=== PATIENT | female | born 1945 | race Caucasian/White ===

== ENCOUNTER 2017-08-18 15:33 | Inpatient (IN) | payer MEDICARE ==
[~2017-08-18 15:33] MED LIST: ISOVUE-370 76%-LOCM 1 ML ONE
--- NOTE | 2017-08-18 16:03 | RAD ---
PORTABLE CHEST ONE VIEW: Date: 08-18-17 Time: 3:02 p.m. History: Fever, nausea. FINDINGS: Heart is enlarged. The aorta is tortuous. No lobar consolidation, pneumothoraces, arsen pleural edema or large effusions are seen. IMPRESSION: Cardiomegaly. POS: LEFTY
[2017-08-18 16:06] LABS: Hemoglobin 13.3 g/dL (12.0-16.0); Mean Corpuscular HGB CONC 33.1 g/dL (32.0-36.0); Mean Corpuscular Hemoglobin 30.8 pg (27.0-31.0); Mean Corpuscular Volume 93.1 fL (78.0-98.0); Mean Platelet Volume 7.6 fL (7.4-10.4); Platelet Count 245 thou/uL (130-400); RBC Distribution Width 14.4 % (11.5-14.5); Red Blood Cell (RBC) Count 4.32 mill/uL (4.20-5.40); White Blood Cell (WBC) Count 14.8 thou/uL (4.8-10.8)
[2017-08-18 16:22] LABS: ALT (SGPT) 27 U/L (8-55); AST (SGOT) 28 U/L (5-34); Albumin 4.2 g/dL (3.4-4.8); Alkaline Phosphatase 73 U/L (40-150); Anion Gap 15 mmol/L (10-20); BUN (Urea Nitrogen) 11 mg/dL (9.8-20.1); CK (CPK) 94 U/L (29-168); Calc. Creatinine Clearance 0 mL/min (70-130); Calcium 9.6 mg/dL (7.8-10.44); Carbon Dioxide 22 mmol/L (23-31); Chloride 98 mmol/L (98-107); Estimated GFR-MDRD 60; Globulin 3.5 g/dL (2.4-3.5); Glucose 121 mg/dL (83-110); Protein, Total 7.7 g/dL (6.0-8.3); Sodium 131 mmol/L (136-145)
[2017-08-18 16:23] LABS: Band 5 % (5-11); Lymphocytes 4 % (21-51); MDiff Complete? YES; Monocytes 3 % (0-10); Neutrophil 87 % (42-75); PLT Morphology Comment Appears Adequate; RBC Morphology Normal; Reactive Lymphocytes 1 % (0-10); Vacuoles SLIGHT
[2017-08-18 17:30] LABS: CKMB 1.4 ng/mL (0-6.6)
[2017-08-18] MEDS ORDERED: Piperacillin/Tazobactam 3.375 GM VIAL ONE (17:59)
[2017-08-18] MEDS ORDERED: Aspirin 325 MG TAB ONE (17:59)
[2017-08-18 18:07] LABS: Bilirubin Negative (Negative); Blood, Urine Small (Negative); Clarity CLEAR (Clear); Glucose, Urine (Dipstick) Negative (Negative); Leukocyte Trace (Negative); Nitrite Negative (Negative); Protein, Urine (Dipstick) Trace mg/dL (Neg-Trace); Specific Gravity, Urine 1.008 (1.002-1.036); Urobilinogen 0.2 mg/dL (0.2-1.0)
[2017-08-18 18:08] LABS: Bacteria/HPF None Seen HPF (None Seen); Hyaline Casts/LPF 0-3 HYALINE CAST LPF (0-3 Hyaline); Pathc Cast-AUWi Flag 0.58 (0-2.49); Squamous Epithelial 0-3 HPF (0-3); WBC/HPF 0-3 HPF (0-3)
--- NOTE | 2017-08-18 18:34 | PDOC.FPRHP ---
- History of Present Illness Chief Complaint: Fever History of Present Illness: 72yo healthy female with pmh of HLD, psoriatic arthritis and polio as a child with fever, nausea and vomiting of 1 day duration. She reports feeling fine Wednesday 08/16 but yesterday afternoon started to feel bad and developed a nonproductive cough. Later she began running a fever of up to 104. She started having nausea and a couple episodes of bilious vomiting today. Endorses headache that resolved with administration of IV fluids. Reports no PO intake over last 24hrs except small sips. Denies sick contacts, eating strange or new foods. [place] but denies any bug bites or ticks. ED Course: Vanc, Zosyn and 2L of IV fluids were administered. CXR was unremarkable and EKG showed sinus tachycardia, complete LBBB, left axis deviation, and left atrial enlargement. Group A strep and blood cx's were obtained - Allergies/Adverse Reactions Allergies Allergy/AdvReac Type Severity Reaction Status Date / Time codeine Allergy Intermediate Anxiety Verified 08/18/17 19:34 - Home Medications Medication Instructions Recorded Confirmed Type Aspirin [Ecotrin Low Strength] 325 mg PO HS 08/18/17 08/18/17 History Atorvastatin Calcium [Lipitor] 10 mg PO HS 08/18/17 08/18/17 History Cholecalciferol (Vitamin D3) 1,000 unit PO HS 08/18/17 08/18/17 History [Vitamin D3] Folic Acid 1 mg PO HS 08/18/17 08/18/17 History Leucovorin Calcium 5 mg PO HS 08/18/17 08/18/17 History Methotrexate Sodium/PF 25 mg IN Q7DAYS 08/18/17 08/18/17 History [Methotrexate 25 mg/ml Vial] Pantoprazole [Protonix] 40 mg PO QAM 08/18/17 08/18/17 History - History PMHx: Spondylolisthesis, arthritis, Left eye blood clot, hx of polio as child, HLD, psoriatic arthritis PSHx: Left foot surgery, cholecystectomy, hysterectomy FHx: None Social: Denies tobacco, alcohol or drug use. Lives in [place] at home alone. Retired - Review of Systems General: reports: fever/chills, weight/appetite/sleep changes (anorexia and sips only) Eyes: denies: vision changes ENT: denies: nasal congestion Respiratory: reports: cough (nonproductive) Cardiovascular: denies: chest pain, edema, orthopnea Gastrointestinal: reports: nausea, vomiting (bilious). denies: diarrhea, constipation, abdominal pain Genitourinary: denies: incontinence Skin: denies: rashes, lesions Musculoskeletal: reports: arthritis/arthralgias Neurological: reports: numbness, weakness (Piolo related Left leg weakness Right food numbness due to spondylolisthesis), other (Headache) - Vital signs BP: 133/81 HR: 125 RR: 22 Tmax: 102.6 Pox: 96% on 2L - Physical Exam Constitutional: NAD, awake, alert and oriented, well developed HEENT: normocephalic and atraumatic, PERRLA, EOMI, oropharynx clear, good dention, other (dry mucous membranes) Neck: supple, trachea midline, no LAD, no thyromegaly Chest: no-tender to palpation Heart: RRR Lungs: CTAB, no respiratory distress, good air movement, no wheezing Abdomen: soft, non-tender, bowel sounds present Musculoskeletal: other (Left leg atrophy related to polio) Neurological: other (right foot numbness related to spondylolisthesis) Skin: no rash/lesions, capillary refill <2 seconds Psychiatric: normal mood and affect, good judgment and insight FMR H&P: Results - Labs Result Diagrams: 08/18/17 15:46 08/18/17 15:46 Lab results: WBC 14.8 thou/uL (4.8-10.8) H 08/18/17 15:46 Hgb 13.3 g/dL (12.0-16.0) 08/18/17 15:46 Hct 40.2 % (36.0-47.0) 08/18/17 15:46 MCV 93.1 fL (78.0-98.0) 08/18/17 15:46 Plt Count 245 thou/uL (130-400) 08/18/17 15:46 Band Neuts % (Manual) 5 % (5-11) 08/18/17 15:46 Sodium 131 mmol/L (136-145) L 08/18/17 15:46 Potassium 4.0 mmol/L (3.5-5.1) 08/18/17 15:46 Chloride 98 mmol/L (98-107) 08/18/17 15:46 Carbon Dioxide 22 mmol/L (23-31) L 08/18/17 15:46 BUN 11 mg/dL (9.8-20.1) 08/18/17 15:46 Creatinine 0.92 mg/dL (0.6-1.1) 08/18/17 15:46 Glucose 121 mg/dL (83-110) H 08/18/17 15:46 Lactic Acid 0.9 mmol/L (0.5-2.2) 08/18/17 15:46 Calcium 9.6 mg/dL (7.8-10.44) 08/18/17 15:46 Total Bilirubin 1.0 mg/dL (0.2-1.2) 08/18/17 15:46 AST 28 U/L (5-34) 08/18/17 15:46 ALT 27 U/L (8-55) 08/18/17 15:46 Alkaline Phosphatase 73 U/L (40-150) 08/18/17 15:46 Creatine Kinase 94 U/L (29-168) 08/18/17 15:46 CK-MB (CK-2) 1.4 ng/mL (0-6.6) 08/18/17 15:49 Serum Total Protein 7.7 g/dL (6.0-8.3) 08/18/17 15:46 Albumin 4.2 g/dL (3.4-4.8) 08/18/17 15:46 Urine Ketones 15 mg/dL (Negative) H 08/18/17 18:00 Urine Blood Small (Negative) H 08/18/17 18:00 Urine Nitrite Negative (Negative) 08/18/17 18:00 Ur Leukocyte Esterase Trace (Negative) H 08/18/17 18:00 Urine RBC 4-6 HPF (0-3) 08/18/17 18:00 Urine WBC 0-3 HPF (0-3) 08/18/17 18:00 Ur Squamous Epith Cells 0-3 HPF (0-3) 08/18/17 18:00 Urine Bacteria None Seen HPF (None Seen) 08/18/17 18:00 - EKG Interpretation EKG: Sinus tach 122. Complete LBBB, left axis deviation, Left atrial enlargement - Radiology Interpretation Chest x-ray Status: report reviewed by me Additional comment: Cardiomegaly FMR H&P: A/P - Problem List (1) Spondylisthesis Current Visit: Yes Status: Acute Code(s): M43.10 - SPONDYLOLISTHESIS, SITE UNSPECIFIED (2) Polio Current Visit: No Status: Acute Code(s): A80.9 - ACUTE POLIOMYELITIS, UNSPECIFIED Comment: As child (3) HLD (hyperlipidemia) Current Visit: Yes Status: Acute Code(s): E78.5 - HYPERLIPIDEMIA, UNSPECIFIED (4) Nausea & vomiting Current Visit: Yes Status: Acute Code(s): R11.2 - NAUSEA WITH VOMITING, UNSPECIFIED (5) Tachycardia Current Visit: Yes Status: Acute Code(s): R00.0 - TACHYCARDIA, UNSPECIFIED (6) Psoriatic arthritis Current Visit: Yes Status: Acute Code(s): L40.50 - ARTHROPATHIC PSORIASIS, UNSPECIFIED - Plan Mrs Watkins is a 72yo female with pmh of psoriatic arthritis on methotrexate, and HLD who presents with nausea, vomiting, and fever. She is tachycardic despite fluid resuscitation and reports changes in her breathing. 1. SIRS hypovolemia vs PE vs infection - Wells Score 4.5 moderate risk. No recent immobilization but SOB and taking Methotrexate with age>60 makes PE more likely - lactic acid 0.9 - Troponin 0.06-> 0.089 - CXR: cardiomegaly - 2L NS in ED - Blood cx's pending - Obtain CTA 2. N/V fever - Likely to be viral cause but some case studies report fevers with PE - Zofran 4mg PRN - Lipase pending - NS 100mL/hr 3. Psoriatic Arthritis - Takes Methotrexate once weekly on Thursday 4. HLD - Cont Lipitor - Cont aspirin 81mg 5. GERD - Cont home Pantoprazole FMR H&P: Upper Level - Pertinent history 72 yr old female with history of psoriatic arthritis and HLD presents with nausea, vomiting, and fever all day. She reports a fever that began 24 hours ago and got as high as 104. She reports a non productive cough that began yesterday. She reports some difficulty with her breathing but not necessarily short of breath. She has not tolerated food in 24 hours but is taking some broth at time of interview. She denies abdominal pain. She denies chest pain. No recent surgery, no long travel, no immobility, no history of DVT. No hematemesis or hemoptysis. - Pertinent findings Gen: NAD, normal appearance. Heart: tachycardic, no murmurs, rubs, or gallops Lungs: CTAB, no tachypnea Abd: BS present, nontender to palpation in all quadrants. Ext: left LE atrophy, no edema in BLE. 2+ post tibial pulses bilaterally - Plan Date/Time: 08/18/171827 I, [Fabi Nuñez], have evaluated this patient and agree with findings/plan as outlined by rn intern resident. Pertinent changes/additions are listed here. 72 yr old female with nausea and vomiting and fever. 1. SIRS- Cont broad abx and await blood cultures. No apparent source, consider viral gastritis. tylenol for fever. 2. Vomiting- improved s/p 2 liters NS. potentially viral gastritis. nml CMP, checking lipase. zofran PRN. cont fluids for now at maintenance. full liquid diet 3. tachycardia- with her tachycardia, and hypoxia (noted to be to 90% on RA in ER) we have ordered a CTA from ER. Will follow up on results. 4. HLD- cont home meds. 5. psoriatic arthritis- stable, no current flair. Full liquid diet DVT ppx- lovenox Attending Addendum - Attending Addendum Date/Time: 08/18/172238 I personally evaluated the patient and discussed the management with Dr. Danielle I agree with the History, Examination, Assessment and Plan documented above with any addition or exceptions noted below- Briefly this is a 72 year old female with h/o psoriatis arthritis. HLD and polio as a child who presented with a one day h/o fever, malaise, N/V and cough. Patient states that she was in her usual good state of health until today when these symptoms developed. Denies any URI symptoms, abdominal pain, diarrhea or dysuria. Cough is non- productive. PMH/PSH/Meds/ All reviewed and agree with resident's findings. BP: 133/81 HR: 125 RR: 22 Tmax: 102.6 Pox: 96% on 2L Exam repeated by me and agree with resident's findings. Labs: WBC= 14.8, Diff 87N/5B/4L, H/H= 13.3/40.2 , lactic acid=0.9, troponin I= indeterminate x3, U/A= small blood, trace LE, bacteria none seen. CTA chest- no PE, mild pulmonary edema. CXR- cardiomegaly A/P: 1) SIRS based on fever, tachycardia, and no identifiable source - Place in obs - Blood and urine cultures pending - Continue Vanc and Cefepime 2) Indeterminate troponins - continue to trend 3) SOB and mild decreased O2 sats - CTA negative; consider echo - will check BNP
[2017-08-18 19:43] LABS: Troponin I 0.089 ng/mL (< 0.028)
[2017-08-18] MEDS ORDERED: Ondansetron ODT 4 MG TAB PO PRN (19:55)
[2017-08-18] MEDS ORDERED: Acetaminophen 325 MG TAB PO PRN (21:09)
[2017-08-18] MEDS: Sodium Chloride 0.9% 1,000 ML IV SCH (21:23)
--- NOTE | 2017-08-18 21:36 | CT ---
CT ANGIOGRAM CHEST WITH CONTRAST: 08/18/17 HISTORY: Dyspnea. Tachycardia. COMPARISON: Chest radiograph same day. FINDINGS: CT angiogram chest performed after the intravenous administration of contrast. 3D rendering is provid ed. No proximal segmental pulmonary arterial filling defect. Pulmonary trunk size is nondilated. The aort ic size is nonaneurysmal. Heart size is markedly enlarged. No significant pericardial effusion. There is reflux of contrast wit hin the suprahepatic IVC and hepatic veins. No mediastinal adenopathy. Punctate calcification right superior renal collecting system. Low grade interstitial pulmonary edema in the lung bases with some mosaic attenuation. Sternum and manubrium are intact. No thoracic spine compression fracture. No displaced rib fracture. IMPRESSION: 1. Cardiomegaly with mild pulmonary edema. 2. Punctate calculus in superior pole right kidney. 3. No segmental pulmonary arterial filling defect. POS: MOODY
[2017-08-18 22:41] LABS: Troponin I 0.136 ng/mL (< 0.028)
[2017-08-19] MEDS: Piperacillin/Tazobactam 3.375 GM in Sodium Chloride 0.9% 100 ML IVPB SCH ×5 (00:23→23:47)
[2017-08-19 01:34] LABS: Troponin I 0.172 ng/mL (< 0.028)
[2017-08-19 06:02] LABS: #Lymphocytes 1.2 thou/uL (1.20-3.40); #Monocytes 0.8 thou/uL (0.11-0.59); #Neutrophils 10.5 thou/uL (1.40-6.50); %Basophils 0.2 % (0.0-1.0); %Eosinophils 0.1 % (0.0-10.0); %Lymphocytes 9.6 % (21.0-51.0); %Monocytes 6.5 % (0.0-10.0); %Neutrophils 83.6 % (42.0-75.0); Hemoglobin 12.1 g/dL (12.0-16.0); Mean Corpuscular HGB CONC 33.5 g/dL (32.0-36.0); Mean Corpuscular Hemoglobin 31.6 pg (27.0-31.0); Mean Corpuscular Volume 94.4 fL (78.0-98.0); Platelet Count 188 thou/uL (130-400); RBC Distribution Width 14.6 % (11.5-14.5); Red Blood Cell (RBC) Count 3.82 mill/uL (4.20-5.40); White Blood Cell (WBC) Count 12.6 thou/uL (4.8-10.8)
--- NOTE | 2017-08-19 06:10 | PDOC.FM ---
- Subjective Subjective: Pt reports feeling much better today, denies any chest pain, shortness of breath , N/V/D. - Objective Vital Signs & Weight: Vital Signs (12 hours) Temp Pulse Resp BP Pulse Ox 08/19/17 00:00 99.0 F 108 H 20 118/73 93 L 08/18/17 21:30 98.5 F 107 H 18 110/58 L 92 L I&O: 08/17/17 08/18/17 08/19/17 06:59 06:59 06:59 Intake Total 100 Balance 100 Result Diagrams: 08/19/17 04:33 08/19/17 04:33 <Vishal Galicia - Last Filed: 08/19/17 08:30> - Objective Vital Signs & Weight: Vital Signs (12 hours) Temp Pulse Resp BP Pulse Ox 08/19/17 16:00 99.2 F 98 17 130/63 95 08/19/17 14:08 98.0 F 93 16 97 08/19/17 11:28 98.0 F 93 16 120/68 97 Result Diagrams: 08/19/17 04:33 08/19/17 04:33 <Jodee Long - Last Filed: 08/19/17 16:25> Phys Exam - Physical Examination Constitutional: NAD Respiratory: no wheezing, no rales, no rhonchi, clear to auscultation bilateral Cardiovascular: no significant murmur, irregular (additional beats were appreciated. no obvious murmur. ) Gastrointestinal: soft, non-tender Musculoskeletal: no edema, pulses present Psychiatric: normal affect <Vishal Galicia - Last Filed: 08/19/17 08:30> Dx/Plan (1) Elevated troponin I measurement Code(s): R74.8 - ABNORMAL LEVELS OF OTHER SERUM ENZYMES Status: Acute (2) Tachycardia Code(s): R00.0 - TACHYCARDIA, UNSPECIFIED Status: Acute - Plan Plan: 1. Elevated Troponin hypovolemia vs PE vs infection vs new structural defect - Wells Score 4.5 moderate risk. No recent immobilization but SOB and taking Methotrexate with age>60 makes PE more likely - lactic acid 0.9 - Troponin 0.06-> 0.089 -> .136 -> .172 -> .2 - Blood cx's pending - CTA: no segmental pulmonary artery filling defect -cardiomegaly on CXR, elevated BNP, uptrending trop: consult cardiology, order TTE to evaluate for viral myocarditis or a new structural defect. 2. Psoriatic Arthritis - Takes Methotrexate once weekly on Thursday 3. HLD - Cont Lipitor - Cont aspirin 81mg 4. GERD - Cont home Pantoprazole PPx: no anti-coagulation due to positive FOBT Dispo: pt feels improved from last night, cardiology consult today, due to need for further testing will make inpatient status <Vishal Galicia - Last Filed: 08/19/17 08:30> Attending Addendum - Attending Addendum Date/Time: 08/19/17 9542 I personally evaluated the patient and discussed the management with Dr. Galicia. I agree with the History, Examination, Assessment and Plan documented above with any addition or exceptions noted below. The patient presented with nausea, vomiting and fever. She had sirs wtih no identifiable source. Today symptoms are resolved. BNP is elevated and troponins are rising indicating possible nstemi and concern for heart failure. Will change to inpatient. Echo result is pending. Pt also appears to have a new LBBB on EKG. Cardiology has been consulted. <Jodee Long - Last Filed: 08/19/17 16:25>
[2017-08-19 06:27] LABS: Anion Gap 13 mmol/L (10-20); BUN (Urea Nitrogen) 10 mg/dL (9.8-20.1); Calc. Creatinine Clearance 68 mL/min (70-130); Calcium 8.5 mg/dL (7.8-10.44); Carbon Dioxide 21 mmol/L (23-31); Chloride 103 mmol/L (98-107); Estimated GFR-MDRD 70; Glucose 97 mg/dL (83-110); Potassium 3.6 mmol/L (3.5-5.1); Sodium 133 mmol/L (136-145)
[2017-08-19 06:44] LABS: CKMB 4.4 ng/mL (0-6.6); Troponin I 0.207 ng/mL (< 0.028)
[2017-08-19] MEDS: Vancomycin HCl 750 MG in Sodium Chloride 0.9% 250 ML 250 ML IVPB SCH ×2 (07:46→21:20)
[2017-08-19] MEDS: Sodium Chloride 0.9% 1,000 ML IV SCH (07:47)
[2017-08-19] MEDS: Aspirin 81 mg Enteric Coated Tablet PO SCH (08:39)
[2017-08-19] MEDS: Folic Acid 1 MG TAB PO SCH (08:39)
[2017-08-19] MEDS: Enoxaparin Sodium 40 MG/0.4 ML SYRINGE SC SCH (08:39)
[2017-08-19] MEDS: Leucovorin Calcium 5 MG TAB PO SCH (08:39)
[2017-08-19 08:42] LABS: Troponin I 0.256 ng/mL (< 0.028)
[2017-08-19] MEDS ORDERED: Lactated Ringer's 1,000 ML IV SCH (08:45)
[2017-08-19] MEDS ORDERED: Atorvastatin Calcium 10 MG TAB PO SCH (09:00)
[2017-08-19] MEDS ORDERED: Prevnar 13-Val Conj/PF 0.5 ML SYRINGE IM ONE (09:00)
[2017-08-19 11:48] LABS: CKMB 5.3 ng/mL (0-6.6)
[2017-08-19 11:50] LABS: Troponin I 0.309 ng/mL (< 0.028)
[2017-08-19] MEDS ORDERED: Furosemide 20 MG/2 ML VIAL SLOW IVP SCH (13:15)
[2017-08-19 14:30] LABS: CKMB 4.8 ng/mL (0-6.6)
[2017-08-19 14:33] LABS: Troponin I 0.379 ng/mL (< 0.028)
[2017-08-19] MEDS: Carvedilol 3.125 MG TAB PO SCH (17:46)
[2017-08-19] MEDS: Atorvastatin Calcium 10 MG TAB PO SCH (20:44)
--- NOTE | 2017-08-19 21:16 | CON ---
DATE OF CONSULTATION: 08/19/2017 HISTORY: Chanelle Watkins is a 72-year-old white female who has had a longstanding left bundle-branch b lock. In 04/2012, while living in [place], she underwent Lexiscan Cardiolite testing for evaluation of chest pain. This revealed no evidence of ischemia. However, the left ventricle was moderately d ilated with ejection fraction of 36%. Ms. Watkins thinks she may have had an echocardiogram 10 years ago when she lived in [place], but not since. Dr. Monson has followed her for carotid artery disease. Carotid Doppler has not shown any significant disease -- less than 50% left internal carotid and bi lateral common carotid plaquing. Ms. Watkins states that she has not noticed any weakness or shortness of breath until recently. In , she traveled to [place] and will walk miles per day without difficulty. 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 Over the last 1-2 months; however, she has noted with walking. She will become more dyspneic. She denies any episodes of PND, orthopnea, or le g edema. She also denies ever having any recent chest discomfort. She now is admitted with developing a fever up to 104 on 08/17/2017 as well as a nonproductive cough, nausea, and vomiting. In the emergency room, she was given vancomycin and Zosyn as well as 2 liters of fluid. She has had abnormal cardiac enzymes and Cardiology consultation was requested. Again, s he denies any chest discomfort. PAST MEDICAL HISTORY: Hyperlipidemia, history of polio as a child, psoriatic arthritis, spondylolist hesis, left eye blood clot. OPERATIONS: Left foot surgery, cholecystectomy, hysterectomy, removal of breast cyst. MEDICATIONS: Aspirin 325 daily, atorvastatin 100 mg at bedtime, folic acid 1 mg daily, vitamin D3, l eucovorin, calcium 5 mg at bedtime, methotrexate 25 mg every 7 days, and Protonix 40 q.a.m. ALLERGIES: CODEINE. SOCIAL HISTORY: Smoked one half pack per day, but stopped in 1996. She does not drink. Her one year ago. FAMILY HISTORY: Negative for coronary artery disease. REVIEW OF SYSTEMS: Twelve-point review of systems is otherwise unremarkable. PHYSICAL EXAMINATION: VITAL SIGNS: Blood pressure 130/63, pulse of 98. HEENT: PERRL. NECK: Supple. LUNGS: Chest is clear. CARDIAC: S1, S2 normal, without any S3, S4 or murmurs. Carotid upstrokes normal, without bruits. ABDOMEN: Normal bowel sounds, without tenderness, organomegaly. EXTREMITIES: Revealed no clubbing, cyanosis or edema. NEUROLOGIC: Grossly intact. SKIN: Warm and dry. LABORATORY DATA: EKG reveals sinus tachycardia with the rate of 126 per minute with left bundle bran ch block, left axis deviation. Echocardiogram was technically difficult with moderate left ventricul ar enlargement, severe left ventricular dysfunction with ejection fraction of 15-20%, mild to moderat e left atrial enlargement, moderate mitral regurgitation, aortic valvular sclerosis and mild to moder ate tricuspid regurgitation. Chest x-ray revealed cardiomegaly. Chest CTA revealed cardiomegaly wit h mild pulmonary edema and no evidence of pulmonary emboli. Hemoglobin 12.1, hematocrit 36.0, white count 12,600, platelets 188,000. CK-MB is up to normal x4. Troponin I is up to 0.379. BNP 2156.4. TSH is normal. Sodium 133, potassium 3.6, chloride 103, carbon dioxide 21, BUN 10, creatinine 0.80. Liver function tests were normal. IMPRESSION: 1. Temperature 104, nausea and vomiting, but uncertain etiology. 2. Elevated troponin I. She does not have any chest discomfort, CK-MB is normal. This certainly ma y be due to demand ischemia from her heart failure. 3. Severe left ventricular dysfunction with ejection fraction of 15-20%. 4. Longstanding left bundle-branch block. 5. Hyperlipidemia. 6. Mild carotid disease, less than 50%. 7. Hypercholesterolemia. 8. Gastroesophageal reflux disease. 9. History of polio. RECOMMENDATIONS: Patient will be started on carvedilol 3.125 b.i.d. and furosemide 20 q.a.m. Her bl ood pressure will be watched closely and LORE inhibitor will be added if possible. Consideration chema ld be given to cardiac catheterization for evaluation of her severe cardiomyopathy. However, I would prefer until she was somewhat further removed from her febrile episode up to 104 and to see if any s pecific etiology can be determined for that. Consideration should be given to LifeVest prior to discharge. If in 3 months she continues to have s evere left ventricular dysfunction, then consideration can be given to a biventricular ICD. There wa s a note in Dr. Monson' last office visit that an echo has been performed in 08/2013; however, I could not find that in our electronic medical record.
[2017-08-19] MEDS ORDERED: Vancomycin HCl 750 MG in Sodium Chloride 0.9% 250 ML 250 ML IVPB SCH (22:00)
[2017-08-20] MEDS: Piperacillin/Tazobactam 3.375 GM in Sodium Chloride 0.9% 100 ML IVPB SCH (05:52)
--- NOTE | 2017-08-20 05:56 | PDOC.FM ---
- Subjective Subjective: Pt continue to feel well, no new symptoms overnight. Denies shortness of breath , chest pain, or swelling in her extremities. - Objective Vital Signs & Weight: Vital Signs (12 hours) Temp Pulse Resp BP Pulse Ox 08/20/17 04:00 96.5 F L 83 12 121/61 96 08/20/17 00:27 99.0 F 86 16 121/62 95 08/19/17 19:30 98.8 F 97 18 113/58 L 93 L I&O: 08/18/17 08/19/17 08/20/17 06:59 06:59 06:59 Intake Total 600 Balance 600 Result Diagrams: 08/19/17 04:33 08/19/17 04:33 <Vishal Galicia - Last Filed: 08/20/17 09:18> - Objective Vital Signs & Weight: Vital Signs (12 hours) Temp Pulse Resp BP BP Pulse Ox 08/20/17 16:16 98.6 F 83 17 116/59 L 96 08/20/17 11:54 88 08/20/17 11:46 98.7 F 88 17 127/68 96 08/20/17 07:50 98.2 F 84 16 127/67 96 I&O: 08/19/17 08/20/17 08/21/17 06:59 06:59 06:59 Intake Total 600 Balance 600 Result Diagrams: 08/19/17 04:33 08/19/17 04:33 <Jodee Long - Last Filed: 08/20/17 17:13> Phys Exam - Physical Examination Respiratory: no rales, no rhonchi, clear to auscultation bilateral Cardiovascular: RRR, no significant murmur, no rub Gastrointestinal: soft, non-tender Musculoskeletal: no edema, pulses present Psychiatric: normal affect <Vishal Galicia - Last Filed: 08/20/17 09:18> Dx/Plan (1) Heart failure with reduced ejection fraction Code(s): I50.20 - UNSPECIFIED SYSTOLIC (CONGESTIVE) HEART FAILURE Status: Acute (2) Elevated troponin I measurement Code(s): R74.8 - ABNORMAL LEVELS OF OTHER SERUM ENZYMES Status: Acute (3) Tachycardia Code(s): R00.0 - TACHYCARDIA, UNSPECIFIED Status: Acute - Plan Plan: 1. New onset HFrEF - lactic acid 0.9 - Troponin 0.06-> 0.089 -> .136 -> .172 -> .2 - Blood cx's neg - CTA: no segmental pulmonary artery filling defect -cardiomegaly on CXR, elevated BNP, uptrending trop -Echo: EF 15-20% - Cards consult, recommed lasix and carvedilol now, possible KETTY pending blood pressure. Cath and defib possible in outpatient follow up 2. Psoriatic Arthritis - Takes Methotrexate once weekly on Thursday 3. HLD - Cont Lipitor - Cont aspirin 81mg 4. GERD - Cont home Pantoprazole PPx: no anti-coagulation due to positive FOBT Dispo: Pt continues to feel well, she would like to go home, consider adding KETTY -I today and possible discharge tomorrow after fitting for life vest <Vishal Galicia - Last Filed: 08/20/17 09:18> Attending Addendum - Attending Addendum Date/Time: 08/20/17 1710 I personally evaluated the patient and discussed the management with Dr. Galicia. I agree with the History, Examination, Assessment and Plan documented above with any addition or exceptions noted below. Patient with newly diagnosed systolic CHF with reduced EF. appreciate cardiology recs. Will add low dose ketty inhibitor. PT's throat culture positive for strep. Will start antibiotics. will need life vest prior to discharge. <Jodee Long - Last Filed: 08/20/17 17:13>
--- NOTE | 2017-08-20 07:42 | EKG ---
Test Reason : STAT Blood Pressure : / mmHG Vent. Rate : 116 BPM Atrial Rate : 116 BPM P-R Int : 148 ms QRS Dur : 148 ms QT Int : 370 ms P-R-T Axes : 058 267 046 degrees QTc Int : 514 ms Sinus tachycardia with occasional Premature ventricular complexes Possible Left atrial enlargement Right superior axis deviation Non-specific intra-ventricular conduction block LBBB pattern anterior ST elevation cannot R/O acute changes, but may be secondary to LBBB pattern Abnormal ECG When compared with ECG of 18-AUG-2017 16:57, (Unconfirmed) No significant change was found Confirmed by DR. Michael HIGHTOWER ([id number]) on 08/20/2017 7:42:00 AM Referred By: ROSANNA Confirmed By:DR. Michael HIGHTOWER
[2017-08-20] MEDS: Furosemide 20 MG TAB PO SCH (07:54)
[2017-08-20] MEDS: Carvedilol 3.125 MG TAB PO SCH ×2 (07:54→16:26)
[2017-08-20] MEDS: Aspirin 81 mg Enteric Coated Tablet PO SCH (07:55)
[2017-08-20] MEDS: Folic Acid 1 MG TAB PO SCH (07:55)
[2017-08-20] MEDS: Enoxaparin Sodium 40 MG/0.4 ML SYRINGE SC SCH (07:55)
[2017-08-20] MEDS ORDERED: Furosemide 20 MG/2 ML VIAL SLOW IVP SCH (09:00)
[2017-08-20 09:16] LABS: Vancomycin, Trough 8.7 ug/mL
[2017-08-20] MEDS: Leucovorin Calcium 5 MG TAB PO SCH (11:51)
[2017-08-20] MEDS ORDERED: Lisinopril 5 MG TAB PO SCH (12:00)
--- NOTE | 2017-08-20 16:48 | PDOC.CTH ---
Cardiology Progress Note - Subjective The pt seen and examined. No cardiac complaints. No overnight events. She would like to go home. - Objective Vital Signs Temp Pulse Resp BP BP Pulse Ox 08/20/17 16:16 98.6 F 83 17 116/59 L 96 08/20/17 11:54 88 08/20/17 11:46 98.7 F 88 17 127/68 96 08/20/17 07:50 98.2 F 84 16 127/67 96 08/19/17 08/20/17 08/21/17 06:59 06:59 06:59 Intake Total 600 Balance 600 - Physical Examination General/Neuro: alert & oriented x3 Neck: no JVD present Lungs: CTA Heart: RRR Abdomen: soft Extremities: other: (No edema) - Telemetry Telemetry Rhythm: SR 81 ST elevation - Labs Result Diagrams: 08/19/17 04:33 08/19/17 04:33 Troponin/CKMB CK-MB (CK-2) 4.8 ng/mL (0-6.6) 08/19/17 13:44 Troponin I 0.379 ng/mL (< 0.028) H* 08/19/17 13:44 - Assessment/Plan 1. New onset of systolic HF with EF 15-20% - stable with Coreg 3.125mg bid, ASA 81mg, Lisinopril 5mg qd, and Lasix 20mg qd. Possible LHC only tomorrow by Dr Fowler. 2. Elevated temp - (+) throat group A strep and + occult blood. Temp WNL. cont. to monitor 3. Elevated Trop - possible due to demand ischemia from elevated temp. Cont. to monitor on tele. 4. Hyperlipidemia - on Statin 5. GERD - on Protonix; MAR reviewed * Echo on 08/19/17 showed EF 15-20%, mild-mod dilated LA, mod MR, and mild-mod TR. LHC only tomorrow by Dr Fowler. Will discharge with LifeVest. Review of Systems - Review of Systems Constitutional: reports: no symptoms reported EENTM: reports: no symptoms reported Respiratory: reports: no symptoms reported Cardiac (ROS): reports: no symptoms reported ABD/GI: reports: no symptoms reported : reports: no symptoms reported Musculoskeletal: reports: no symptoms reported
[2017-08-20] MEDS: AMOXicillin 250 MG CAP PO SCH (21:13)
[2017-08-20] MEDS: Atorvastatin Calcium 10 MG TAB PO SCH (21:13)
[2017-08-20] MEDS ORDERED: Clopidogrel Bisulfate 75 MG TAB ONE (23:19)
--- NOTE | 2017-08-21 05:35 | PDOC.FM ---
- Subjective Subjective: Pt. reports that she continues to feel well. No new symptoms overnight, she denies chest pain, shortness of breath, swelling, or weakness. - Objective Vital Signs & Weight: Vital Signs (12 hours) Temp Pulse Resp BP BP Pulse Ox 08/21/17 04:30 98.8 F 83 20 125/60 96 08/20/17 23:03 97.6 F 81 20 113/58 L 95 08/20/17 21:13 98.5 F 83 16 95 08/20/17 21:08 98.5 F 83 16 104/51 L 95 Weight Weight 68.356 kg I&O: 08/19/17 08/20/17 08/21/17 06:59 06:59 06:59 Intake Total 600 Balance 600 Result Diagrams: 08/21/17 07:07 08/21/17 07:07 <Vishal Galicia - Last Filed: 08/21/17 09:11> - Objective Vital Signs & Weight: Vital Signs (12 hours) Temp Pulse Resp BP BP BP Pulse Ox 08/21/17 16:00 96.9 F L 70 16 119/55 L 95 08/21/17 12:33 80 16 119/58 L 08/21/17 11:15 96.9 F L 72 16 108/57 L 08/21/17 10:51 72 16 117/57 L 08/21/17 08:00 97.7 F 78 16 08/21/17 07:37 97.7 F 78 16 122/57 L 95 08/21/17 06:38 87 16 119/58 L 08/21/17 04:30 98.8 F 83 20 125/60 96 Weight Weight 68.356 kg I&O: 08/20/17 08/21/17 08/22/17 06:59 06:59 06:59 Intake Total 600 490 Output Total 1300 Balance 600 -810 Result Diagrams: 08/21/17 07:07 08/21/17 07:07 <Jodee Long - Last Filed: 08/21/17 16:27> Phys Exam - Physical Examination Constitutional: NAD Respiratory: no wheezing, clear to auscultation bilateral Cardiovascular: RRR, no significant murmur Gastrointestinal: soft, non-tender Musculoskeletal: no edema, pulses present Psychiatric: normal affect <Vishal Galicia - Last Filed: 08/21/17 09:11> Dx/Plan (1) Heart failure with reduced ejection fraction Code(s): I50.20 - UNSPECIFIED SYSTOLIC (CONGESTIVE) HEART FAILURE Status: Acute (2) Strep pharyngitis Code(s): J02.0 - STREPTOCOCCAL PHARYNGITIS Status: Acute (3) Elevated troponin I measurement Code(s): R74.8 - ABNORMAL LEVELS OF OTHER SERUM ENZYMES Status: Acute - Plan Plan: 1. New onset HFrEF - Blood cx's neg - CTA: no segmental pulmonary artery filling defect -cardiomegaly on CXR, elevated BNP, uptrending trop -Echo: EF 15-20% - Cards consult, started on lasix and carvedilol - Lisinopril 5mg added - Left heart Cath today, discharge with Life vest 2. Streptococcal pharyngitis - Positive throat culture - Amoxicillin added 3. Psoriatic Arthritis - Takes Methotrexate once weekly on Thursday 4. HLD - Cont Lipitor - Cont aspirin 81mg 5. GERD - Cont home Pantoprazole PPx: no anti-coagulation due to positive FOBT Dispo: Pt continues to feel well, she is going for a left heart cath today, and needs to be fitted for a life vest before discharge <Vishal Galicia - Last Filed: 08/21/17 09:11> Attending Addendum - Attending Addendum Date/Time: 08/21/17 [id number] I personally evaluated the patient and discussed the management with Dr. Galicia. I agree with the History, Examination, Assessment and Plan documented above with any addition or exceptions noted below. The patient will have a left heart cath today. Will f/u with cardiology recs after cath. Will need life vest. <Jodee Long - Last Filed: 08/21/17 16:27>
[2017-08-21] MEDS ORDERED: Aspirin 81 mg Enteric Coated Tablet PO SCH (06:00)
[2017-08-21] MEDS ORDERED: Leucovorin Calcium 5 MG TAB PO SCH (06:00)
[2017-08-21] MEDS ORDERED: Sodium Chloride 0.9% 1,000 ML IV SCH ×2 (06:00→11:00)
[2017-08-21] MEDS ORDERED: Carvedilol 3.125 MG TAB PO SCH (06:00)
[2017-08-21] MEDS ORDERED: Furosemide 20 MG TAB PO SCH (06:00)
[2017-08-21] MEDS ORDERED: Folic Acid 1 MG TAB PO SCH (06:00)
[2017-08-21] MEDS ORDERED: AMOXicillin 250 MG CAP PO SCH (06:00)
[2017-08-21] MEDS ORDERED: Lisinopril 5 MG TAB PO SCH ×2 (06:00→09:00)
[2017-08-21] MEDS: Aspirin 81 mg Enteric Coated Tablet PO SCH (06:40)
[2017-08-21] MEDS: Leucovorin Calcium 5 MG TAB PO SCH (06:40)
[2017-08-21] MEDS: Folic Acid 1 MG TAB PO SCH (06:41)
[2017-08-21] MEDS: Carvedilol 3.125 MG TAB PO SCH ×2 (06:41→16:14)
[2017-08-21] MEDS: AMOXicillin 250 MG CAP PO SCH ×2 (06:43→20:36)
[2017-08-21] MEDS: Enoxaparin Sodium 40 MG/0.4 ML SYRINGE SC SCH (06:46)
[2017-08-21 07:29] LABS: #Eosinphils 0.2 thou/uL (0.0-0.7); #Monocytes 0.4 thou/uL (0.11-0.59); %Basophils 0.5 % (0.0-1.0); %Eosinophils 3.6 % (0.0-10.0); %Lymphocytes 17.8 % (21.0-51.0); %Neutrophils 71.1 % (42.0-75.0); Hemoglobin 11.9 g/dL (12.0-16.0); Mean Corpuscular HGB CONC 32.8 g/dL (32.0-36.0); Mean Corpuscular Hemoglobin 31.2 pg (27.0-31.0); Mean Corpuscular Volume 95.1 fL (78.0-98.0); Platelet Count 221 thou/uL (130-400); RBC Distribution Width 14.2 % (11.5-14.5); Red Blood Cell (RBC) Count 3.83 mill/uL (4.20-5.40); White Blood Cell (WBC) Count 5.7 thou/uL (4.8-10.8)
[2017-08-21 07:51] LABS: ALT (SGPT) 29 U/L (8-55); AST (SGOT) 26 U/L (5-34); Albumin 3.7 g/dL (3.4-4.8); Alkaline Phosphatase 63 U/L (40-150); Anion Gap 10 mmol/L (10-20); BUN (Urea Nitrogen) 11 mg/dL (9.8-20.1); Bilirubin, Total 0.8 mg/dL (0.2-1.2); Calc. Creatinine Clearance 70 mL/min (70-130); Calcium 9.2 mg/dL (7.8-10.44); Carbon Dioxide 26 mmol/L (23-31); Chloride 102 mmol/L (98-107); Estimated GFR-MDRD 74; Globulin 2.9 g/dL (2.4-3.5); Glucose 103 mg/dL (83-110); Potassium 3.5 mmol/L (3.5-5.1); Protein, Total 6.6 g/dL (6.0-8.3); Sodium 134 mmol/L (136-145)
[2017-08-21] MEDS: Furosemide 20 MG TAB PO SCH (08:15)
[2017-08-21] MEDS ORDERED: Lidocaine 1% (PF) 30 ML VIAL ONE (08:42)
[2017-08-21] MEDS ORDERED: Nitroglycerin 100MG/250ML BOT 250 ML ONE (09:18)
[2017-08-21] MEDS ORDERED: Heparin 10,000 UNITS/1 ML VIAL ONE (09:19)
[2017-08-21] MEDS ORDERED: Verapamil 5 MG/2 ML VIAL ONE (10:09)
[2017-08-21] MEDS ORDERED: Fentanyl 100 MCG/2 ML VIAL ONE (10:09)
[2017-08-21] MEDS ORDERED: Midazolam HCl 2 mg/2 ml Vial ONE (10:09)
[2017-08-21] MEDS ORDERED: traMADol HCl 50 MG TAB PO PRN (10:51)
[2017-08-21] MEDS ORDERED: Nitroglycerin 0.4 MG TAB (25 Tab Bottle) SL PRN (10:51)
--- NOTE | 2017-08-21 10:55 | PDOC.CTH ---
Cardiology Progress Note - Subjective The pt seen and examined. No overnight events. No cardiac complaints. She will undergo LHC today by Dr Fowler. She denied any question or concerns prior to the procedure. - Objective Vital Signs Temp Pulse Resp BP BP Pulse Ox 08/21/17 08:00 97.7 F 78 16 08/21/17 07:37 97.7 F 78 16 122/57 L 95 08/21/17 06:38 87 16 119/58 L 08/21/17 04:30 98.8 F 83 20 125/60 96 08/20/17 23:03 97.6 F 81 20 113/58 L 95 Weight 150 lb 11.2 oz 08/20/17 08/21/17 08/22/17 06:59 06:59 06:59 Intake Total 600 490 Output Total 1300 Balance 600 -810 - Physical Examination General/Neuro: alert & oriented x3 Neck: no JVD present Lungs: CTA Heart: RRR Abdomen: soft Extremities: other: (No edema) - Telemetry Telemetry Rhythm: SR - Labs Result Diagrams: 08/21/17 07:07 08/21/17 07:07 Troponin/CKMB CK-MB (CK-2) 4.8 ng/mL (0-6.6) 08/19/17 13:44 Troponin I 0.379 ng/mL (< 0.028) H* 08/19/17 13:44 - Assessment/Plan 1. New onset of systolic HF with EF 15-20% - stable with Coreg 3.125mg bid, ASA 81mg, Lisinopril 5mg qd, and Lasix 20mg qd. The pt will undergo LHC only today by Dr Fowler. 2. Elevated temp - (+) throat group A strep and + occult blood. Temp WNL. On antibiotics. cont. to monitor 3. Elevated Trop - possible due to demand ischemia from elevated temp. Cont. to monitor on tele. 4. Hyperlipidemia - on Statin 5. GERD - on Protonix; MAR reviewed * The procedure and the risk of LHC were explained to the pt: The risk included , but not limited to, hemorrhage, infection, anaphylactic reaction to iodine, DC , CVA, and . The pt voiced understanding and agreed to undergo LHC by Dr Fowler. * Echo on 08/19/17 showed EF 15-20%, mild-mod dilated LA, mod MR, and mild-mod TR. * Will discharge with LifeVest for EF 15-20%. Review of Systems - Review of Systems Constitutional: reports: no symptoms reported EENTM: reports: no symptoms reported Respiratory: reports: no symptoms reported Cardiac (ROS): reports: no symptoms reported ABD/GI: reports: no symptoms reported : reports: no symptoms reported
[2017-08-21] MEDS ORDERED: Sodium Chloride 0.9% 200 ML IV SCH (11:00)
[2017-08-21 20:26] VITALS: BP 110/52; TEMP 98.5
[2017-08-21] MEDS: Atorvastatin Calcium 10 MG TAB PO SCH (20:36)
== END 2017-08-21 20:53 | disposition home or self-care (01) | DRG 287 ==
LOC: ERS 15:33 → 2SW 20:56 → OBSVTOIN 08-19 08:34 → 2NO 08-19 13:19
PROVIDERS: ADMIT Family Medicine; ATTEND Family Medicine
PROC: 4A023N7 Measurement of Cardiac Sampling and Pressure, Left Heart, Percutaneous Approach (ICD-10-PCS; principal; 2017-08-21)
PROC: B2111ZZ Fluoroscopy of Multiple Coronary Arteries using Low Osmolar Contrast (ICD-10-PCS; 2017-08-21)
PROC: B2151ZZ Fluoroscopy of Left Heart using Low Osmolar Contrast (ICD-10-PCS; 2017-08-21)
DX: I11.0 Hypertensive heart disease with heart failure (principal); J81.1 Chronic pulmonary edema; E78.5 Hyperlipidemia, unspecified; I50.21 Acute systolic (congestive) heart failure; L40.50 Arthropathic psoriasis, unspecified; I44.7 Left bundle-branch block, unspecified; Z86.12 Personal history of poliomyelitis; M43.10 Spondylolisthesis, site unspecified; K21.9 Gastro-esophageal reflux disease without esophagitis; Z79.82 Long term (current) use of aspirin; I25.10 Atherosclerotic heart disease of native coronary artery without angina pectoris; Z88.5 Allergy status to narcotic agent; Z87.891 Personal history of nicotine dependence; E78.00 Pure hypercholesterolemia, unspecified; J02.0 Streptococcal pharyngitis
CPT/HCPCS: 36415; 71045; 71275; 80048; 80053; 80202; 81003; 81015; 82274; 82550; 82553; 83605; 83690; 83880; 84443; 84484; 85025; 87040; 87081; 87430; 87804; 93005; 93010; 93306; 93458; 93798; 96361; 96365; 96367; 99152; 99153; A4216; C1760; C1769; J1644; J1650; J1940; J2001; J2250; J2543; J3010; J3370; J7050; Q0162

== ENCOUNTER 2018-02-01 07:59 | Outpatient (CLI) | payer MEDICARE ==
--- NOTE | 2018-02-01 10:28 | CT ---
CTA NECK WITH CONTRAST: Technique: Multiple contiguous axial images were obtained through the neck with IV enhancement follow ing an angio protocol with multiplanar reconstruction and 3D post processing. Indications: Bilateral carotid stenosis. Follow up exam. Comparison: CTA neck, 10-12-15. On the prior study, dense calcified plaque seen in both proximal ICAs. Stenosis in the right ICA was described at 50% and left ICA at 20% on that exam. FINDINGS: Atherosclerotic change is seen at the aortic arch. There is calcified plaque at the origin of the arc h vessels, however, no evidence of hemodynamically significant stenosis is identified at the origin o f the arch vessels. Right common carotid artery is unremarkable. There is densely calcified plaque in the right bulb and proximal right internal carotid artery. Steno sis is suboptimally calculated due to the dense calcification, however, the degree of the lumen in th e proximal right ICA at the highest area of stenosis measured at 2.3 mm. Common carotid above the bul b measuring approximately 5 mm. This stenosis is hemodynamically significant and is estimated in the 50-60% diameter range according to NASCET criteria. Left common carotid artery is unremarkable. There is densely calcified plaque in the proximal left internal carotid artery. There is no evidence of hemodynamically significant stenosis in the left ICA. The degree of stenosis in the left ICA is mi nimal according to NASCET criteria and appears unchanged. Vertebral arteries are patent and symmetric. Soft tissues again show low density thyroid nodules which appear stable. IMPRESSION: 1. Densely calcified plaque in both proximal ICAs again noted. There is hemodynamically significant s tenosis in the proximal right internal carotid artery estimated at 50-60% diameter according to NASCE T criteria. POS: MOODY
== END 2018-02-01 08:00 | disposition home or self-care (01) ==
LOC: CT 07:59
PROVIDERS: ATTEND Internal Medicine Cardiovascular Disease
DX: I65.23 Occlusion and stenosis of bilateral carotid arteries (principal)
CPT/HCPCS: 70498; 82565

== ENCOUNTER 2018-10-22 12:58 | Outpatient (CLI) | payer MEDICARE ==
--- NOTE | 2018-10-22 15:30 | MMO ---
Bilateral MAMMO Bilat Screen [facility]. CLINICAL HISTORY: Patient is 73 years old and is seen for screening. The patient has the following family history of breast cancer: mother, at age 55. The patient has no personal history of cancer. The patient has a history of right Excisional Biopsy - benign. VIEWS: The views performed were: bilateral craniocaudal with tomosynthesis and bilateral mediolateral oblique with tomosynthesis. FILMS COMPARED: The present examination has been compared to prior imaging studies performed at [facility] on 08/26/2013, 08/31/2014, 09/14/2015 and 09/15/2016. MAMMOGRAM FINDINGS: There are scattered fibroglandular densities. There are benign appearing calcifications seen in both breasts. There are no suspicious masses, suspicious calcifications, or new areas of architectural distortion. IMPRESSION: THERE IS NO MAMMOGRAPHIC EVIDENCE OF MALIGNANCY. A ROUTINE FOLLOW-UP MAMMOGRAM IN 1 YEAR IS RECOMMENDED. THE RESULTS OF THIS EXAM WERE SENT TO THE PATIENT. ACR BI-RADS Category 2 - Benign finding MAMMOGRAPHY NOTE: 1. A negative mammogram report should not delay a biopsy if a dominant of clinically suspicious mass is present. 2. Approximately 10% to 15% of breast cancers are not detected by mammography. 3. Adenosis and dense breasts may obscure an underlying neoplasm. Reported by: KAYDEN QUEZADA MD Electonically Signed: [id number]
== END 2018-10-22 12:59 | disposition home or self-care (01) ==
LOC: BICMAMMO 12:58
PROVIDERS: ATTEND Internal Medicine
DX: Z12.31 Encounter for screening mammogram for malignant neoplasm of breast (principal); Z91.89 Other specified personal risk factors, not elsewhere classified; Z80.3 Family history of malignant neoplasm of breast
CPT/HCPCS: 77063; 77067

== ENCOUNTER 2020-01-30 14:08 | Outpatient (CLI) | payer MEDICARE ==
--- NOTE | 2020-01-30 15:35 | MMO ---
Bilateral MAMMO Bilat Screen [facility]. CLINICAL HISTORY: Patient is 74 years old and is seen for screening. The patient has the following family history of breast cancer: mother, at age 55. The patient has no personal history of cancer. The patient has a history of right Excisional Biopsy - benign. VIEWS: The views performed were: bilateral craniocaudal with tomosynthesis; bilateral mediolateral oblique with tomosynthesis; and right craniocaudal. FILMS COMPARED: The present examination has been compared to prior imaging studies performed at [facility] on 08/31/2014, 09/14/2015, 09/15/2016 and 10/22/2018. This study has been interpreted with the assistance of computer-aided detection. MAMMOGRAM FINDINGS: There are scattered fibroglandular densities. Benign calcifications are noted bilaterally. There are no suspicious masses, suspicious calcifications, or new areas of architectural distortion. IMPRESSION: THERE IS NO MAMMOGRAPHIC EVIDENCE OF MALIGNANCY. A ROUTINE FOLLOW-UP MAMMOGRAM IN 1 YEAR IS RECOMMENDED. THE RESULTS OF THIS EXAM WERE SENT TO THE PATIENT. ACR BI-RADS Category 2 - Benign finding MAMMOGRAPHY NOTE: 1. A negative mammogram report should not delay a biopsy if a dominant of clinically suspicious mass is present. 2. Approximately 10% to 15% of breast cancers are not detected by mammography. 3. Adenosis and dense breasts may obscure an underlying neoplasm. Reported by: ELVI ELIZABETH MD Electonically Signed: [id number]
== END 2020-01-30 14:09 | disposition home or self-care (01) ==
LOC: BICMAMMO 14:08
PROVIDERS: ATTEND Internal Medicine
DX: Z12.31 Encounter for screening mammogram for malignant neoplasm of breast (principal); Z80.3 Family history of malignant neoplasm of breast; Z91.89 Other specified personal risk factors, not elsewhere classified
CPT/HCPCS: 77063; 77067

== ENCOUNTER 2020-02-28 10:31 | Outpatient (CLI) | payer MEDICARE ==
--- NOTE | 2020-02-28 11:16 | CT ---
CTA Angio Neck W WO Con History: Evaluate for stenosis. Carotid stenosis. Comparison: CT angiogram neck 2018 Findings: CT angiogram neck performed after the intravenous administration of contrast. 3-D rendering provided. No apical pneumothorax. Mild apical scarring. Visualized transverse aorta is without aneurysmal dilat ation. Moderate soft and calcific plaque. Focal rarefaction of medullary cavity and T1 superior endplate is similar dating back to 2018. Small hypodensity posterior left lobe of thyroid. No cervical adenopathy. No acute fracture or malalignment. Vessels: Right vertebral artery origin is patent. The vertebral arteries are codominant. Right vertebral arter ies without significant stenosis. Left vertebral artery origin is patent. No significant stenosis of the left vertebral artery. Right common carotid artery origin is patent. Extensive atherosclerotic plaque throughout the carotid bulb and proximal right internal carotid artery. 50-60% narrowing right proximal internal carotid artery due to calcific and soft plaque for a length of 8 mm. Remainder of the right internal carotid artery is patent. Left common carotid artery origin is patent. 40-50% narrowing of the left carotid bulb and proximal i nternal carotid artery due to calcific and soft plaque. Remainder of the left internal carotid artery is patent. Visualized venetie of Chen is patent. Impression: No hemodynamic significant stenosis of the internal carotid arteries per NASCET criteria. 50-60% righ t carotid bulb and 40-50% left carotid bulb narrowing. Transcribed Date/Time: 02/28/2020 11:59 AM
[2020-02-28] MEDS ORDERED: Iopamidol 370 76% 100 ML VIAL ONE (13:49)
== END 2020-02-28 10:32 | disposition home or self-care (01) ==
LOC: BICCT 10:31
PROVIDERS: ATTEND Internal Medicine Cardiovascular Disease
DX: I65.23 Occlusion and stenosis of bilateral carotid arteries (principal)
CPT/HCPCS: 70498; 82565

== ENCOUNTER 2022-03-14 11:31 | Outpatient (CLI) | payer MEDICARE, OTHER | END 2022-03-14 11:32 | disposition home or self-care (01) | LOC: BICMAMMO 11:31 | PROVIDERS: ATTEND Internal Medicine | DX: Z12.31 Encounter for screening mammogram for malignant neoplasm of breast (principal); Z80.3 Family history of malignant neoplasm of breast; Z91.89 Other specified personal risk factors, not elsewhere classified | CPT/HCPCS: 77063; 77067 ==

== ENCOUNTER 2022-10-27 08:30 | Outpatient (CLI) | payer MEDICARE ==
[2022-10-27] MEDS ORDERED: Iopamidol-370 76% 500 ML MDV (1 ML CHARGE) ONE (09:42)
== END 2022-10-27 08:31 | disposition home or self-care (01) ==
LOC: BICCT 08:30
PROVIDERS: ATTEND Internal Medicine Cardiovascular Disease
DX: I65.23 Occlusion and stenosis of bilateral carotid arteries (principal)
CPT/HCPCS: 70498; 82565; Q9967